=== PATIENT | female | born 1940 | race African-American/Black ===

== ENCOUNTER 2016-10-13 11:05 | Inpatient (IN) | payer MEDICARE, MEDICAID ==
[~2016-10-13] VITALS: Ht 170.2 cm; Wt 79.8 kg
[~2016-10-13 11:05] MED LIST: IOHEXOL-350 100 ML BOTTLE ONE
[2016-10-13 11:59] LABS: EOSINOPHILS % 0.6 % (0.0-5.0); HEMATOCRIT. 41.1 % (36.0-48.0); HEMOGLOBIN. 13.7 g/dL (12.0-16.0); LYMPHOCYTES % 34.7 % (20.0-50.0); MEAN CORPUSCULAR HEMOGLOBIN 29.7 pg (28.0-32.0); MEAN CORPUSCULAR VOLUME 89.1 fL (81.0-99.0); MEAN PLATELET VOLUME 7.3 fl (7.4-10.4); MONOCYTES % 8.6 % (2.0-8.0); NEUTROPHILS % 55.1 % (40.0-76.0); PLATELET 366 x1000/uL (130-400); RED BLOOD CELL COUNT 4.62 mill/uL (4.2-5.4); RED CELL DISTRIBUTION WIDTH 14.8 % (11.6-14.6)
[2016-10-13 12:10] LABS: INR 1.1; PARTIAL THROMBOPLASTIN TIME 24.7 sec (24.0-34.0); PROTHROMBIN TIME 11.3 sec
[2016-10-13 12:16] LABS: CARBON DIOXIDE 27 mEq/L (21-32); CHLORIDE 104 mEq/L (98-107); TROPONIN I < 0.02 ng/mL (0.00-0.04)
[2016-10-13 12:18] LABS: D-DIMER 5.36 mg/L FEU (<0.50)
[2016-10-13] MEDS ORDERED: HYDROMORPHONE HCL/PF 2MG/ML CPJ IV PRN (17:15)
[2016-10-13] MEDS ORDERED: NA PHOS,M-B/NA PHOS,DI-BA ENEMA 118ML PR PRN (17:15)
[2016-10-13] MEDS ORDERED: HYDROCODONE/ACETAMINOPHEN 5/325MG TABLET PO PRN (17:15)
[2016-10-13] MEDS ORDERED: GUAIFENESIN 200MG/10ML SUGAR FREE UDC PO PRN (17:15)
[2016-10-13] MEDS ORDERED: MAGNESIUM/ALUMINUM HYDROXIDE/SIMETHICONE 30ML UDC PO PRN (17:15)
[2016-10-13] MEDS ORDERED: ONDANSETRON HCL 4MG/2ML VIAL IV PRN (17:15)
[2016-10-13] MEDS ORDERED: ACETAMINOPHEN 325MG TABLET PO PRN (17:15)
[2016-10-13] MEDS ORDERED: DIPHENHYDRAMINE 50MG/ML VIAL IV PRN (17:15)
[2016-10-13] MEDS ORDERED: LORAZEPAM 2MG/ML CPJ IV PRN (17:15)
[2016-10-13] MEDS ORDERED: IPRATROPIUM/ALBUTEROL 0.5-3(2.5)MG/3ML NEB INH PRN (17:15)
[2016-10-13] MEDS ORDERED: DEXTROSE 50% WATER 50ML SYRINGE IV PRN (18:45)
[2016-10-13] MEDS: CLONIDINE 0.1MG TABLET PO PRN (18:48)
[2016-10-13] MEDS: METHYLPREDNISOLONE SOD SUCC 125 MG/2 ML VIAL IV SCH ×2 (18:48→23:37)
[2016-10-13] MEDS ORDERED: ENOXAPARIN 40MG/0.4ML SYR SUBCUT SCH (21:00)
[2016-10-13] MEDS: BLOOD SUGAR DIAGNOSTIC STRIP TEST SCH (21:23)
[2016-10-13] MEDS: INSULIN LISPRO 100 UNITS/ML SUBCUT SCH (21:25)
[2016-10-14 05:57] LABS: CHLORIDE 104 mEq/L (98-107)
[2016-10-14] MEDS: METHYLPREDNISOLONE SOD SUCC 125 MG/2 ML VIAL IV SCH ×3 (05:58→17:25)
[2016-10-14 06:12] LABS: CARBON DIOXIDE 23 mEq/L (21-32); HDL CHOLESTEROL 73 mg/dL (40-59); LDL CHOLESTEROL 58 mg/dL (5-100); TROPONIN I < 0.02 ng/mL (0.00-0.04)
[2016-10-14 07:09] LABS: BASOPHILS % 0.3 % (0.0-2.0); HEMATOCRIT. 41.5 % (36.0-48.0); HEMOGLOBIN. 13.7 g/dL (12.0-16.0); MEAN CORPUSCULAR HEMOGLOBIN 29.4 pg (28.0-32.0); MEAN CORPUSCULAR VOLUME 89.2 fL (81.0-99.0); MEAN PLATELET VOLUME 7.6 fl (7.4-10.4); MONOCYTES % 0.6 % (2.0-8.0); NEUTROPHILS % 77.1 % (40.0-76.0); PLATELET 372 x1000/uL (130-400); RED BLOOD CELL COUNT 4.66 mill/uL (4.2-5.4); RED CELL DISTRIBUTION WIDTH 14.4 % (11.6-14.6)
[2016-10-14] MEDS: BLOOD SUGAR DIAGNOSTIC STRIP TEST SCH ×4 (07:26→23:13)
[2016-10-14] MEDS: ASPIRIN 81MG TABLET PO SCH (08:57)
[2016-10-14] MEDS: FUROSEMIDE 40MG/4ML VIAL IV SCH (08:57)
[2016-10-14] MEDS: INSULIN LISPRO 100 UNITS/ML SUBCUT SCH ×4 (08:59→21:16)
[2016-10-14] MEDS ORDERED: ASPIRIN 81MG EC TABLET PO SCH (09:00)
[2016-10-14] MEDS: CLONIDINE 0.1MG TABLET PO PRN ×2 (09:04→21:14)
[2016-10-14] MEDS ORDERED: CLONIDINE 0.3MG TABLET PO PRN (11:45)
[2016-10-14] MEDS ORDERED: QUET200T PO (12:07)
[2016-10-14] MEDS ORDERED: NEBI10TA2 PO (12:18)
[2016-10-14] MEDS ORDERED: DEXL60CA3 PO (12:18)
[2016-10-14] MEDS ORDERED: GABA-531 PO (12:18)
[2016-10-14] MEDS ORDERED: ZET10 PO (12:18)
[2016-10-14] MEDS ORDERED: COLE3.75 PO (12:18)
[2016-10-14] MEDS ORDERED: OLME1TAB30 PO (12:18)
[2016-10-14] MEDS ORDERED: FOLI-43 PO (12:18)
[2016-10-14] MEDS ORDERED: MIR25 PO (12:18)
[2016-10-14] MEDS ORDERED: LIRA0.6P2 SUBCUT (12:26)
[2016-10-14] MEDS ORDERED: TERI2.4P SUBCUT (12:26)
[2016-10-14] MEDS ORDERED: NON FORMULARY PATIENT HOME MED EA XX SCH ×2 (12:30)
[2016-10-14] MEDS: GABAPENTIN 300MG CAPSULE PO SCH ×2 (12:46→17:17)
[2016-10-14] MEDS: FOLIC ACID 1MG TABLET PO SCH (12:46)
[2016-10-14] MEDS: AMLODIPINE 10MG TABLET PO SCH (15:03)
[2016-10-14] MEDS: SODIUM CHLORIDE 0.9% 1,000 ML IV SCH (15:03)
[2016-10-14] MEDS: HYDROCHLOROTHIAZIDE 25MG TABLET PO SCH (15:03)
[2016-10-14] MEDS: LOSARTAN POTASSIUM 50 MG TABLET PO SCH (15:04)
[2016-10-14] MEDS: NEBIVOLOL HCL 5 MG TABLET PO SCH (15:06)
[2016-10-14 16:05] LABS: CREATINE KINASE MB FRACTION 1.5 ng/mL (0.5-3.6)
[2016-10-14] MEDS: PRAMIPEXOLE DI-HCL 0.5MG TABLET PO SCH (17:17)
[2016-10-14] MEDS: QUETIAPINE FUMARATE 100MG TABLET PO SCH (21:13)
[2016-10-14] MEDS: ENOXAPARIN 40MG/0.4ML SYR SUBCUT SCH (21:14)
[2016-10-14] MEDS: EZETIMIBE 10MG TABLET PO SCH (21:14)
[2016-10-14] MEDS: INSULIN DETEMIR UD 100 UNITS/ML SYR SUBCUT SCH (21:17)
[2016-10-14] MEDS: DOCUSATE SODIUM 100MG CAPSULE PO PRN (21:20)
[2016-10-14] MEDS ORDERED: INSULIN DETEMIR UD 100 UNITS/ML SYR SUBCUT SCH (22:00)
[2016-10-15] MEDS: METHYLPREDNISOLONE SOD SUCC 125 MG/2 ML VIAL IV SCH ×2 (01:33→05:40)
[2016-10-15] MEDS: SODIUM CHLORIDE 0.9% 1,000 ML IV SCH ×2 (01:33→15:30)
[2016-10-15] MEDS: BLOOD SUGAR DIAGNOSTIC STRIP TEST SCH ×4 (05:51→21:44)
[2016-10-15 09:40] LABS: CREATINE KINASE MB FRACTION 3.6 ng/mL (0.5-3.6)
[2016-10-15] MEDS: COLESEVELAM HCL 625MG TABLET PO SCH (09:41)
[2016-10-15] MEDS: FUROSEMIDE 40MG/4ML VIAL IV SCH (09:42)
[2016-10-15] MEDS: LOSARTAN POTASSIUM 50 MG TABLET PO SCH (09:42)
[2016-10-15] MEDS: NEBIVOLOL HCL 5 MG TABLET PO SCH (09:42)
[2016-10-15] MEDS: ASPIRIN 81MG TABLET PO SCH (09:42)
[2016-10-15] MEDS: AMLODIPINE 10MG TABLET PO SCH (09:43)
[2016-10-15] MEDS: PRAMIPEXOLE DI-HCL 0.5MG TABLET PO SCH ×2 (09:43→18:41)
[2016-10-15] MEDS: HYDROCHLOROTHIAZIDE 25MG TABLET PO SCH (09:43)
[2016-10-15] MEDS: GABAPENTIN 300MG CAPSULE PO SCH ×3 (09:43→18:42)
[2016-10-15] MEDS: FOLIC ACID 1MG TABLET PO SCH (09:43)
[2016-10-15] MEDS: INSULIN LISPRO 100 UNITS/ML SUBCUT SCH ×4 (09:44→21:51)
[2016-10-15] MEDS ORDERED: INSULIN LISPRO 100 UNITS/ML SUBCUT SCH (12:30)
[2016-10-15] MEDS: ENOXAPARIN 40MG/0.4ML SYR SUBCUT SCH (20:52)
[2016-10-15] MEDS: METHYLPREDNISOLONE SOD SUCC 40 MG/ML VIAL IV SCH (20:52)
[2016-10-15] MEDS: QUETIAPINE FUMARATE 100MG TABLET PO SCH (20:52)
[2016-10-15] MEDS: EZETIMIBE 10MG TABLET PO SCH (20:53)
[2016-10-15] MEDS: DOCUSATE SODIUM 100MG CAPSULE PO PRN (20:53)
[2016-10-15] MEDS: INSULIN DETEMIR UD 100 UNITS/ML SYR SUBCUT SCH (21:52)
[2016-10-16] MEDS: SODIUM CHLORIDE 0.9% 1,000 ML IV SCH ×2 (00:04→12:54)
[2016-10-16] MEDS: BLOOD SUGAR DIAGNOSTIC STRIP TEST SCH ×4 (07:40→23:16)
[2016-10-16] MEDS ORDERED: LACTULOSE 20G/30ML UDC PO SCH (08:15)
[2016-10-16] MEDS: GABAPENTIN 300MG CAPSULE PO SCH ×3 (08:40→17:30)
[2016-10-16] MEDS: LOSARTAN POTASSIUM 50 MG TABLET PO SCH (08:40)
[2016-10-16] MEDS: METHYLPREDNISOLONE SOD SUCC 40 MG/ML VIAL IV SCH ×2 (08:40→21:13)
[2016-10-16] MEDS: PRAMIPEXOLE DI-HCL 0.5MG TABLET PO SCH ×2 (08:40→17:31)
[2016-10-16] MEDS: AMLODIPINE 10MG TABLET PO SCH (08:41)
[2016-10-16] MEDS: NEBIVOLOL HCL 5 MG TABLET PO SCH (08:41)
[2016-10-16] MEDS: HYDROCHLOROTHIAZIDE 25MG TABLET PO SCH (08:41)
[2016-10-16] MEDS: ASPIRIN 81MG TABLET PO SCH (08:41)
[2016-10-16] MEDS: COLESEVELAM HCL 625MG TABLET PO SCH (08:42)
[2016-10-16] MEDS: FOLIC ACID 1MG TABLET PO SCH (08:43)
[2016-10-16] MEDS: INSULIN LISPRO 100 UNITS/ML SUBCUT SCH ×4 (09:14→23:13)
[2016-10-16] MEDS: ENOXAPARIN 40MG/0.4ML SYR SUBCUT SCH (21:12)
[2016-10-16] MEDS: QUETIAPINE FUMARATE 100MG TABLET PO SCH (21:13)
[2016-10-16] MEDS: EZETIMIBE 10MG TABLET PO SCH (21:13)
[2016-10-16] MEDS: INSULIN DETEMIR UD 100 UNITS/ML SYR SUBCUT SCH (23:14)
[2016-10-17] MEDS: SODIUM CHLORIDE 0.9% 1,000 ML IV SCH (04:04)
[2016-10-17] MEDS: BLOOD SUGAR DIAGNOSTIC STRIP TEST SCH ×2 (06:28→11:59)
[2016-10-17] MEDS: AMLODIPINE 10MG TABLET PO SCH (08:37)
[2016-10-17] MEDS: FOLIC ACID 1MG TABLET PO SCH (08:37)
[2016-10-17] MEDS: PRAMIPEXOLE DI-HCL 0.5MG TABLET PO SCH (08:37)
[2016-10-17] MEDS: HYDROCHLOROTHIAZIDE 25MG TABLET PO SCH (08:37)
[2016-10-17] MEDS: COLESEVELAM HCL 625MG TABLET PO SCH (08:37)
[2016-10-17] MEDS: LOSARTAN POTASSIUM 50 MG TABLET PO SCH (08:38)
[2016-10-17] MEDS: NEBIVOLOL HCL 5 MG TABLET PO SCH (08:39)
[2016-10-17] MEDS: ASPIRIN 81MG TABLET PO SCH (08:39)
[2016-10-17] MEDS: METHYLPREDNISOLONE SOD SUCC 40 MG/ML VIAL IV SCH (08:40)
[2016-10-17] MEDS: GABAPENTIN 300MG CAPSULE PO SCH ×2 (08:40→12:32)
[2016-10-17] MEDS: INSULIN LISPRO 100 UNITS/ML SUBCUT SCH ×2 (08:49→12:33)
[2016-10-17 12:00] VITALS: BP 141/81
== END 2016-10-17 15:55 | disposition home or self-care (01) | DRG 291 ==
LOC: ER 11:20 → 7WST 16:51 → EDBEDREQ 16:52 → ENRESERV 16:57
PROVIDERS: ADMIT Internal Medicine; ATTEND Internal Medicine
DX: I50.33 Acute on chronic diastolic (congestive) heart failure (principal); J96.00 Acute respiratory failure, unspecified whether with hypoxia or hypercapnia; I47.1 Supraventricular tachycardia; J45.901 Unspecified asthma with (acute) exacerbation; I10 Essential (primary) hypertension; D64.9 Anemia, unspecified; E11.65 Type 2 diabetes mellitus with hyperglycemia; G20 Parkinson's disease; I25.10 Atherosclerotic heart disease of native coronary artery without angina pectoris; J44.9 Chronic obstructive pulmonary disease, unspecified; Z79.899 Other long term (current) drug therapy; Z86.73 Personal history of transient ischemic attack (TIA), and cerebral infarction without residual deficits; E11.40 Type 2 diabetes mellitus with diabetic neuropathy, unspecified
CPT/HCPCS: 36415; 71010; 71275; 80048; 80053; 80061; 82550; 82553; 82962; 83036; 83690; 83880; 84439; 84443; 84484; 85025; 85379; 85610; 85730; 93005; 93306; 97116; 97161; 99285; J1650; J1815; J1940; J2920; J2930; J7030; J7040; Q9967; A4315